=== PATIENT | female | born 1980 | race Caucasian/White ===

== ENCOUNTER 2016-07-28 18:15 | Emergency (ER) | payer OTHER ==
[~2016-07-28 18:15] MED LIST: ACETAMINOPHEN PR; BACTROBAN15 GM TOP; BENADRYL PO; CECLOR PO; CLARITIN10 MG; CLARITIN10 MG PO; DIAZEPAM; DICLOFENAC PO; ELIMITE60 GM TOP; KEFLEX PO; KETOPROFEN PO; LEVAQUIN PO; LORTAB 10-5001 EACH PO; LORTAB 10/500 T1 TAB; LORTAB 2.5/5001 TAB PO; LORTAB 7.5-5001 TAB PO; LORTAB 7.51 TAB 7.5/ PO; PEN-VEE K PO; PHENERGAN PO; PROZAC; REGLAN10 MG PO; VICODIN 5/1 TAB 5/50 PO; VICODIN 5/500 T1 TAB PO; VICODIN PO; VOLTAREN75 MG PO; ZANTAC PO
[2016-07-28] MEDS ORDERED: NO MEDICATIONS (18:29)
== END 2016-07-28 19:17 | disposition home or self-care (01) ==
LOC: SED 18:15
DX: L02.411 Cutaneous abscess of right axilla (principal); Z90.49 Acquired absence of other specified parts of digestive tract; Z98.890 Other specified postprocedural states; F17.210 Nicotine dependence, cigarettes, uncomplicated
CPT/HCPCS: 99283